=== PATIENT | female | born 1975 | race Caucasian/White ===

== ENCOUNTER 2020-10-06 06:25 | Emergency (ER) | payer MEDICAID, OTHER ==
[~2020-10-06] VITALS: Ht 162.6 cm; Wt 100.0 kg
[2020-10-06] MEDS ORDERED: IBUPROFEN 200 MG TABLET ONE (06:45)
--- NOTE | 2020-10-06 06:48 | NUR ---
BEDSIDE REPORT TO MONSERRAT RICH
--- NOTE | 2020-10-06 06:54 | NUR ---
ASSUMED CARE OF PT.
[2020-10-06] MEDS ORDERED: IBUPROFEN 200 MG TABLET PO ONE (07:00)
[2020-10-06 07:58] VITALS: BP 111/66
--- NOTE | 2020-10-06 07:59 | NUR ---
Patient given discharge instructions and they have confirmed that they understand the instructions. Patient ambulatory with steady gait.
== END 2020-10-06 08:00 | disposition home or self-care (01) ==
LOC: ED 07:50
DX: M79.601 Pain in right arm (principal); G89.29 Other chronic pain; M79.18 Myalgia, other site; G43.909 Migraine, unspecified, not intractable, without status migrainosus; Z90.710 Acquired absence of both cervix and uterus
CPT/HCPCS: 99283